=== PATIENT | male | born 2000 | race African-American/Black ===

== ENCOUNTER 2022-12-17 20:51 | Emergency (ER) | payer MEDICAID ==
[2022-12-17 21:12] VITALS: BP 113/73
[2022-12-17 23:01] LABS: HEMATOCRIT. 48.4 % (42.0-52.0); HEMOGLOBIN. 16.7 g/dL (14.0-18.0); MEAN CORPUSCULAR VOLUME 83.7 fL (80.0-94.0); MEAN PLATELET VOLUME 7.5 fl (7.4-10.4); PLATELET 272 x1000/uL (130-400); RED BLOOD CELL COUNT 5.78 mill/uL (4.7-6.1); RED CELL DISTRIBUTION WIDTH 13.4 % (11.6-14.6)
[2022-12-17 23:16] LABS: CHLORIDE 110 mEq/L (98-107)
[2022-12-17 23:21] LABS: CLARITY URINE CLEAR (CLEAR); COLOR URINE DARK YELLOW (YELLOW); KETONES URINE TRACE (NEGATIVE); LEUKOCYTE ESTERASE URINE TRACE (NEGATIVE); NITRITE URINE NEGATIVE (NEGATIVE); OCCULT BLOOD URINE NEGATIVE (NEGATIVE); PH URINE 5.5 (4.5-8.0); PROTEIN URINE NEGATIVE (NEGATIVE); SPECIFIC GRAVITY URINE 1.036 (1.005-1.030)
[2022-12-17 23:23] LABS: PLATELET ESTIMATE NORMAL
[2022-12-17] MEDS ORDERED: ONDA4TAB50 MT (23:59)
[2022-12-18 00:27] VITALS: PULSE 95; RESP 18; TEMP 98.1
== END 2022-12-18 00:28 | disposition home or self-care (01) ==
LOC: ER 20:51
DX: R10.9 Unspecified abdominal pain (principal)
CPT/HCPCS: 36415; 74176; 80053; 81003; 85025; 99284